=== PATIENT | female | born 1955 | race Caucasian/White ===

== ENCOUNTER → 2023-10-19 11:16 | Outpatient (REF) | payer MEDICARE, BC, SELFPAY | LOC: WDC 11:16 | PROVIDERS: ATTENDING PHYSICIAN Family Medicine | DX: M81.0 Age-related osteoporosis without current pathological fracture (principal); Z12.31 Encounter for screening mammogram for malignant neoplasm of breast; M85.80 Other specified disorders of bone density and structure, unspecified site; Z13.820 Encounter for screening for osteoporosis | CPT/HCPCS: 77063; 77067; 77080; 77081 ==

== ENCOUNTER → 2024-01-18 06:29 | Day surgery (SDC) | payer MEDICARE, BC, SELFPAY | LOC: GI 06:29 | PROVIDERS: ATTENDING PHYSICIAN Internal Medicine; FAMILY PHYSICIAN Family Medicine | DX: Z12.11 Encounter for screening for malignant neoplasm of colon (principal); D12.3 Benign neoplasm of transverse colon; K63.5 Polyp of colon; K57.30 Diverticulosis of large intestine without perforation or abscess without bleeding; K64.9 Unspecified hemorrhoids; Z86.010 Personal history of colon polyps | CPT/HCPCS: 45380; 88305 ==

== ENCOUNTER → 2024-04-23 09:13 | Outpatient (REF) | payer MEDICARE, BC, SELFPAY | LOC: HWRAD 09:13 | PROVIDERS: ATTENDING PHYSICIAN Physician Assistant; FAMILY PHYSICIAN Family Medicine | DX: R10.13 Epigastric pain (principal) | CPT/HCPCS: 76700 ==

== ENCOUNTER → 2024-04-30 06:30 | Day surgery (SDC) | payer MEDICARE, BC, SELFPAY | LOC: GI 06:30 | PROVIDERS: ATTENDING PHYSICIAN Internal Medicine; FAMILY PHYSICIAN Family Medicine | DX: R10.13 Epigastric pain (principal); R63.4 Abnormal weight loss; K44.9 Diaphragmatic hernia without obstruction or gangrene | CPT/HCPCS: 43239; 88305; 88342 ==

== ENCOUNTER 2024-05-06 08:12 | Emergency (ER) | payer MEDICARE, BC, SELFPAY ==
[2024-05-06 08:16] VITALS: BP 147/84
[2024-05-06 08:26] VITALS: BMI 24.9
[2024-05-06 08:33] VITALS: BP 129/79
--- NOTE | 2024-05-06 08:33 | ED.GENMED ---
History of Present Illness
General
Chief Complaint: Abdominal Pain
Time Seen by Provider: 05/06/24 08:28
History of Present Illness
History of Present Illness:
68-year-old female presents to the emergency department for evaluation of fever and acute on chronic abdominal pain. She has been dealing with epigastric and right lower quadrant pain for quite some time, underwent an endoscopy 6 days ago that was
essentially unrevealing as well as unrevealing colonoscopy in January. She is scheduled for an abdominal MRI tomorrow. Awoke today with fever and acute worsening of the chronic abdominal pain. No vomiting, diarrhea, or URI symptoms. No prior abd
surgeries
Past History
Past History
ED Past Medical History: Hypothyroidism
ED Past Surgical History: None
Social History
Tobacco: Non-smoker
Alcohol: None
Drug: None
Personal:
Living: with family
Review of Systems
Review of Systems
Allergies reviewed?: Yes
All Other Systems: ROS reviewed and negative except as documented in HPI and ROS
Phy Exam
Physical Exam
Physical Exam:
GEN: Well appearing, NAD, WDWN
Eyes: PERRLA, EOMs intact, no scleral icterus
HENT: NCAT, oral mucosa moist, no JVD, no cervical adenopathy.
Lungs: CTAB, no wheezes, rales, rhonchi, normal chest wall excursion
Cardiac: Tachycardic, regular
Abdomen: S, NT, ND, NABS, no masses or hepatosplenomegaly
Neuro: AO x 3, no focal deficits to BUE/BLE, normal sensation throughout
MSK: No gross deformity or ecchymosis. No edema. No digital clubbing
Skin: No rashes, petechiae. Normal color, no pallor or jaundice.
Psych: Calm, cooperative, proper hygiene
Course
Orders/Labs/Results
Orders:
Orders
05/06/24 08:19
Electrocardiogram (*1) Urgent
Reason for Study: Abdominal Pain
EKG- Treatment ONCE
05/06/24 08:42
COVID-19 Antigen Urgent
Source: Nasal Swab
Complete Blood Count/With Diff Urgent
Comprehensive Metabolic Panel Urgent
Lactic Acid Q4H
Comment: CANCEL 2nd LACTIC ACID IF 1st LACTIC ACID IS LESS THAN 2
Lipase Urgent
Blood Culture Q30M
JET Source: Blood/Venous
Specimen Description:
Influenza A+B Rapid Molecular Urgent
JET Source: Nasal Swab
Specimen Description:
05/06/24 08:43
Blood Culture Q30M
JET Source: Blood/Venous
Specimen Description:
Abnormal Lab Results
05/06/24
08:42
RBC 3.88 L 10^6/uL
(4.20-5.40)
Hct 35.4 L %
(37.0-47.0)
Plt Count 126 L 10^3/uL
(130-400)
Absolute Lymphs (auto) 0.5 L 10^3/uL
(1.2-3.4)
Neutrophils % 81.8 H %
(42.2-75.2)
Lymphocytes % 7.9 L %
(20.5-51.1)
Monocytes % 9.5 H %
(1.7-9.3)
Sodium 133 L mmol/L
(135-145)
Glucose 118 H mg/dl
(70-99)
SARS-CoV-2 Antigen Positive A
(Negative)
05/06/24 08:42
05/06/24 08:42
Vital Signs
Initial and Last Documented VS:
Initial Vital Signs
Temp Pulse Resp BP Pulse Ox
100.0 F 133 18 147/84 98
05/06/24 08:16 05/06/24 08:16 05/06/24 08:16 05/06/24 08:16 05/06/24 08:16
Last Documented Vital Signs
Temp Pulse Resp BP Pulse Ox
100.0 F 118 24 135/82 98
05/06/24 08:16 05/06/24 10:00 05/06/24 10:00 05/06/24 10:00 05/06/24 10:00
MDM/Problems Addressed
MDM/Problems Addressed:
Fever likely from COVID-19, blood cultures sent due to recent invasive procedure. Patient is clinically stable, outpatient management appropriate
*Critical Care Note
Total Time (30-74mins, 75-104mins- exclusive of procedures): Not Applicable
ED Attending Note
-
Portions of this chart may have been created with voice recognition software.� Occasional wrong word or��sound alike� substitutions may have occurred due to the inherent limitations of voice recognition software.
Discharge Plan
Departure
Patient Disposition: Home (Routine Discharge)
Date of Disposition: 05/06/24
Time of Disposition: 10:04
Patient with high blood pressure during this ER visit?: No
Discharge Problem:
COVID-19
Instructions: COVID-19 - ED discharge instructions
Prescriptions:
New
benzonatate 200 mg capsule
200 mg PO TID PRN (Reason: Cough) Qty: 20 0RF
dicyclomine 20 mg tablet
20 mg PO TID PRN (Reason: pain) Qty: 20 0RF
No Action
levothyroxine 50 MCG tablet
50 mcg PO DAILY
multivitamin 1 EACH tablet
1 ea PO DAILY
omeprazole 40 MG capsule,delayed release(DR/EC)
40 mg PO DAILY PRN (Reason: as needed)
metoprolol succinate 25 MG tablet extended release 24 hr
25 mg PO QPM
cholecalciferol (vitamin D3) [Vitamin D3] 1,000 UNIT capsule
1,000 unit PO DAILY
denosumab [Prolia] 60 MG/ML syringe
60 mg SQ [id number]
apixaban [Eliquis] 5 MG tablet
5 mg PO BID
Referrals:
Doreen Mejia MD [Family Provider] -
Interventions
Interventions:
*Risk Screen - Suicide Last Done: 05/06/24 08:16
*General Assessment Last Done: 05/06/24 08:16
*Neglect/Abuse Screening Last Done: 05/06/24 08:16
ED- Fall Risk Assessment Last Done: 05/06/24 08:30
*ED COVID-19 Vaccine History Last Done: 05/06/24 08:16
*Nursing Disposition Last Done: 05/06/24 10:12
[facility] Assessment Last Done: 05/06/24 08:30
Discharge Date and Time
Discharge Date/Time: 05/06/24 10:15
Print Language: [id number]
[2024-05-06 08:56] LABS: % Basophils 0.3 % (0-2); % Eosinophils 0.2 % (0-6); % Immature Granulocytes 0.3 % (0-0.5); % Lymphocytes 7.9 % (20.5-51.1); % Monocytes 9.5 % (1.7-9.3); % Neutrophils 81.8 % (42.2-75.2); Absolute Lymphocytes 0.5 10^3/uL (1.2-3.4); Absolute Monocytes 0.6 10^3/uL (0.1-0.6); Absolute Neutrophils 4.7 10^3/uL (1.4-6.5); Hematocrit 35.4 % (37.0-47.0); Mean Corp Hgb Conc. 33.9 g/dL (33.0-37.0); Mean Corpuscular Hgb 30.9 pg (27.0-31.0); Mean Corpuscular Volume 91.2 fL (81.0-99.0); Nucleated Red Blood Cells % 0 %; Platelet Count 126 10^3/uL (130-400); Red Blood Cell Count 3.88 10^6/uL (4.20-5.40); Red Cell Dist. Width 13.5 % (11.5-14.5); White Blood Cell Count 5.8 10^3/uL (4.8-10.8)
[2024-05-06 09:00] VITALS: BP 128/68
[2024-05-06 09:07] LABS: Lactic Acid 1.1 mmol/L (0.7-2.0)
[2024-05-06 09:08] LABS: ALT (SGPT) 24 U/L (0-35); AST (SGOT) 29 U/L (14-36); Albumin 4.2 g/dl (3.5-5.0); Alkaline Phosphatase 79 U/L (38-126); Blood Urea Nitrogen 13 mg/dl (7-17); Calcium 9.1 mg/dl (8.4-10.2); Carbon Dioxide 26 mmol/L (22-30); Chloride 99 mmol/L (98-107); Estimated Creatinine Clearance 72 ml/min; Glucose 118 mg/dl (70-99); Lipase 52 U/L (23-300); Potassium 3.8 mmol/L (3.5-5.1); Sodium 133 mmol/L (135-145); Total Bilirubin 0.6 mg/dl (0.2-1.3); eGFR > 60.00
[2024-05-06 09:15] LABS: COVID-19 Antigen Positive (Negative)
[2024-05-06 10:00] VITALS: BP 135/82
== END 2024-05-06 10:15 | disposition home or self-care (01) ==
LOC: EMR 08:12
PROVIDERS: Physician Assistant; EMERGENCY PHYSICIAN Emergency Medicine; FAMILY PHYSICIAN Family Medicine
DX: U07.1 COVID-19 (principal); R50.9 Fever, unspecified; E03.9 Hypothyroidism, unspecified; G89.29 Other chronic pain; R10.9 Unspecified abdominal pain
CPT/HCPCS: 99284; 80053; 83605; 83690; 85025; 87040; 87502; 87811; 93005

== ENCOUNTER → 2024-05-07 07:47 | Outpatient (REF) | payer MEDICARE, BC, SELFPAY | LOC: MRI 07:47 | PROVIDERS: ATTENDING PHYSICIAN Physician Assistant; FAMILY PHYSICIAN Family Medicine | DX: K86.2 Cyst of pancreas (principal) | CPT/HCPCS: 74183; A9575 ==

== ENCOUNTER → 2024-10-29 08:16 | Outpatient (REF) | payer MEDICARE, BC, SELFPAY | LOC: WDC 08:16 | PROVIDERS: ATTENDING PHYSICIAN Obstetrics & Gynecology; FAMILY PHYSICIAN Family Medicine | DX: Z12.31 Encounter for screening mammogram for malignant neoplasm of breast (principal) | CPT/HCPCS: 77063; 77067 ==

== ENCOUNTER → 2024-11-08 08:39 | Outpatient (REF) | payer MEDICARE, BC, SELFPAY | LOC: WDC 08:39 | PROVIDERS: ATTENDING PHYSICIAN Obstetrics & Gynecology; FAMILY PHYSICIAN Family Medicine | DX: R92.8 Other abnormal and inconclusive findings on diagnostic imaging of breast (principal) | CPT/HCPCS: 77065 ==